=== PATIENT | female | born 1970 | race Caucasian/White ===

== ENCOUNTER → 2021-04-03 | Outpatient (CLI) | payer BC ==
--- NOTE | 2021-04-04 08:48 | KCIC ---
Exam Date: 04/03/2021 3:25 PM MRI RIGHT UPPER EXTREMITY JOINT WITHOUT CONTRAST Indication: Reason: Right shoulder pain / Spl. Instructions: / History: Pulling injury 03/13/21, pers istent posterior shoulder pain.. TECHNIQUE: Routine multiplanar MR imaging of the shoulder was performed without contrast. FINDINGS: No full-thickness rotator cuff tendon tear is identified. The supraspinatus, infraspinatus, teres mi nor and subscapularis tendons are intact. Rotator cuff musculature demonstrates normal signal and bu lk. Moderate degenerative changes are seen at the AC joint. There is an intact type I/type II acromion. Small to moderate fluid is seen in the subacromial/subdeltoid bursa consistent with bursitis. Long head of the biceps tendon is intact. Labrum demonstrates grossly normal signal and morphology, though lack of intra-articular contrast limits evaluation. Mild degenerative changes are seen at the glenohumeral joint. Bone marrow demonstrates benign signal on all sequences without acute fracture. IMPRESSION: Intact rotator cuff tendons. Mild to moderate subacromial/subdeltoid bursitis. Electronically signed by: Ildefonso Cooper MD (04/04/2021 8:46 AM) [id number]
== END ==
LOC: KCIC MRI 15:16
PROVIDERS: ATTEND Physician Assistant
DX: S49.91XA Unspecified injury of right shoulder and upper arm, initial encounter (principal); M19.011 Primary osteoarthritis, right shoulder; M75.51 Bursitis of right shoulder; X58.XXXA Exposure to other specified factors, initial encounter; Y93.89 Activity, other specified; Y92.89 Other specified places as the place of occurrence of the external cause; Y99.8 Other external cause status
CPT/HCPCS: 73221